=== PATIENT | female | born 1940 | race Caucasian/White ===

== ENCOUNTER 2023-07-08 11:16 | Inpatient (IN) ==
[2023-07-08] MEDS ORDERED: NS 0.9% IV ONE (12:09)
[2023-07-08] MEDS ORDERED: Azithromycin 500 mg/250 ml NS 500 MG/250 ML BAG IVPB ONE (12:09)
[2023-07-08] MEDS ORDERED: cefTRIAXone 1 gm/50 mL D5W 1 GM/50 ML BAG IV ONE (12:09)
[2023-07-08 12:44] LABS: ABS Eosinophils 0.1 10^3/uL (0.0-0.5); ABS Lymphocytes 0.3 10^3/uL (1.0-4.8); ABS Monocytes 0.2 10^3/uL (0.0-0.9); ABS Neutrophils 8.7 10^3/uL (1.5-7.6); ABS Nucleated RBC 0.01 10^3/ul; Eosinophil % 0.9 %; Hematocrit 41.8 % (35-45); Hemoglobin 14.3 g/dL (11.5-14.3); Lymphocyte % 3.2 %; Mean Corpuscular Hemoglobin 31.9 pg (27-33); Mean Corpuscular Hgb Conc 34.1 g/dL (31-36); Mean Corpuscular Volume 93.5 fL (80-97); Mean Platelet Volume 7.9 fL (7.5-11.2); Nucleated Red Blood Cells % 0.1 %/100WBC (0.0-0.8); Platelet Count 220 10^3/uL (150-450); Red Blood Count 4.47 10^6/uL (3.63-4.92); Red Cell Distribution Width 14.4 % (12-17); White Blood Count 9.4 10^3/uL (3.8-11.8)
[2023-07-08] MEDS ORDERED: Acetaminophen IV 1 GM/100ML 1,000 MG/100 ML BAG IV ONE (12:47)
[2023-07-08 13:40] LABS: Albumin 4.5 g/dL (3.2-5.2); Albumin/Globulin Ratio 1.4 (1-3); Calcium 9.3 mg/dL (8.6-10.3); Creatinine, Serum 0.96 mg/dL (0.51-0.95); Globulin 3.2 g/dL (2-4); Potassium 4.1 mmol/L (3.5-5.0); Total Bilirubin 0.5 mg/dL (0.2-1.0); Total Protein 7.7 g/dL (6.4-8.9); eGFR CKD-EPI 59.1 (>60)
[2023-07-08] MEDS ORDERED: Iodixanol (CONTRAST) 320 MG/ML 100 ML SDV IV ONE (14:01)
[2023-07-08 14:05] LABS: High Sensitivity Troponin 1 Hr 1096 pg/mL (<15)
[2023-07-08] MEDS ORDERED: Heparin 5000 UNITS/ML 1 mL VIAL IV SCH (17:00)
[2023-07-08] MEDS ORDERED: methylPREDNISolone SOD SUCC 125 mg 2 ML VIAL IV ONE (17:07)
[2023-07-08] MEDS ORDERED: Ondansetron 4 mg VIAL 2 MG/ML 2 ml VIAL IV PRN (17:09)
[2023-07-08] MEDS: Heparin DRIP 25,000 UNITS BAG 25,000 UNITS/500 ML BAG IV SCH (17:11)
[2023-07-08 17:39] LABS: Hematocrit 40.1 % (35-45); Hemoglobin 13.5 g/dL (11.5-14.3); Mean Corpuscular Hemoglobin 31.8 pg (27-33); Mean Corpuscular Hgb Conc 33.6 g/dL (31-36); Mean Corpuscular Volume 94.6 fL (80-97); Mean Platelet Volume 8.1 fL (7.5-11.2); Platelet Count 202 10^3/uL (150-450); Red Blood Count 4.24 10^6/uL (3.63-4.92); Red Cell Distribution Width 14.3 % (12-17); White Blood Count 9.8 10^3/uL (3.8-11.8)
[2023-07-08 17:48] LABS: Creatinine, Serum 0.88 mg/dL (0.51-0.95); eGFR CKD-EPI 65.6 (>60)
[2023-07-08] MEDS ORDERED: ZOSYN 3.375 GM x ONE DOSE over 30 miuntes IV (18:00)
[2023-07-08 18:54] LABS: ABS Lymphocytes 0.1 10^3/uL (1.0-4.8); ABS Monocytes 0.1 10^3/uL (0.0-0.9); ABS Neutrophils 9.5 10^3/uL (1.5-7.6); Eosinophil % 0.4 %; Lymphocyte % 1.5 %
[2023-07-08] MEDS ORDERED: Metoprolol Tartrate 5 mg VIAL 5 ml VIAL (1 mg/ml) IV ONE (19:01)
[2023-07-08] MEDS: Pantoprazole VIAL 40 MG VIAL IV SCH ×2 (19:13→22:22)
[2023-07-08] MEDS: NS 0.9% 1000 ml BAG 1,000 ML IV SCH (19:32)
[2023-07-08] MEDS ORDERED: Acetaminophen IV 1 GM/100ML 1,000 MG/100 ML BAG IV PRN (19:33)
[2023-07-08 20:35] LABS: High Sensitivity Troponin 3 Hr 3368 pg/mL (<15)
[2023-07-08] MEDS ORDERED: Albuterol 2.5mg/3 ml (0.083%) NEB.SOLN INH PRN (20:53)
[2023-07-09] MEDS: Metoprolol Tartrate 5 mg VIAL 5 ml VIAL (1 mg/ml) IV SCH ×5 (00:26→21:21)
[2023-07-09] MEDS: methylPREDNISolone SOD SUCC 40 mg/ml 1 ml VIAL IV SCH ×5 (00:26→23:23)
[2023-07-09] MEDS: Piperacillin/Tazobac 3.375 BAG 3.375 GM/100 ML BAG IV SCH ×4 (01:21→23:40)
[2023-07-09] MEDS ORDERED: Metoprolol Tartrate 5 mg VIAL 5 ml VIAL (1 mg/ml) IV SCH ×2 (02:00→13:00)
[2023-07-09] MEDS: NS 0.9% 1000 ml BAG 1,000 ML IV SCH (04:23)
[2023-07-09 06:41] LABS: Hematocrit 36.3 % (35-45); Hemoglobin 12.2 g/dL (11.5-14.3); Mean Corpuscular Hemoglobin 31.3 pg (27-33); Mean Corpuscular Hgb Conc 33.6 g/dL (31-36); Mean Corpuscular Volume 93.3 fL (80-97); Platelet Count 167 10^3/uL (150-450); Red Blood Count 3.89 10^6/uL (3.63-4.92); Red Cell Distribution Width 14.3 % (12-17); White Blood Count 13.1 10^3/uL (3.8-11.8)
[2023-07-09 06:59] LABS: Calcium 7.6 mg/dL (8.6-10.3); Creatinine, Serum 0.91 mg/dL (0.51-0.95); Magnesium 1.7 mg/dL (1.9-2.7); Phosphorus 2.3 mg/dL (2.5-5.0); Potassium 3.8 mmol/L (3.5-5.0)
[2023-07-09 07:19] LABS: ABS Basophils 0.1 10^3/uL (0.0-0.1); ABS Eosinophils 0.1 10^3/uL (0.0-0.5); ABS Lymphocytes 0.3 10^3/uL (1.0-4.8); ABS Monocytes 0.1 10^3/uL (0.0-0.9); ABS Neutrophils 12.5 10^3/uL (1.5-7.6); ABS Nucleated RBC 0.01 10^3/ul; Eosinophil % 0.7 %; Lymphocyte % 2.5 %; Nucleated Red Blood Cells % 0.1 %/100WBC (0.0-0.8)
[2023-07-09] MEDS ORDERED: Magnesium Sulfate 2 gm BAG 2 GM/50 ML BAG IVPB ONE (07:20)
[2023-07-09] MEDS ORDERED: NS 0.9% 500 ml BAG 500 ML IV ONE (07:21)
[2023-07-09] MEDS ORDERED: Pantoprazole VIAL 40 MG VIAL IV SCH (07:30)
[2023-07-09 07:43] LABS: RBC Morphology Normal (Normal)
[2023-07-09] MEDS ORDERED: Nebivolol 10 mg TAB (NF) PO SCH ×2 (09:00→10:00)
[2023-07-09] MEDS ORDERED: Metoprolol Tartrate 5 mg VIAL 5 ml VIAL (1 mg/ml) IV PRN (09:26)
[2023-07-09] MEDS ORDERED: Digoxin IV 0.5 MG/2 ML AMP (0.25 MG/ML) IV SLOW PU ONE ×2 (10:08→16:30)
[2023-07-09] MEDS: Ondansetron 4 mg VIAL 2 MG/ML 2 ml VIAL IV PRN ×3 (10:50→23:23)
[2023-07-09] MEDS ORDERED: Furosemide 20 mg/2 ml IV VIAL IV ONE (10:56)
[2023-07-09] MEDS ORDERED: Sodium Phosphate IV 15 MMOL in NS 0.9% 250 ml 250 ML IV ONE (11:00)
[2023-07-09] MEDS ORDERED: Azithromycin 500 mg/250 ml NS 500 MG/250 ML BAG IVPB SCH ×2 (12:00)
[2023-07-09] MEDS: Aspirin EC 81 mg TAB.EC (enteric coated) PO SCH (12:50)
[2023-07-09] MEDS ORDERED: Lidocaine 1% MPF 5 ML VIAL INJ ONE (15:26)
[2023-07-09 19:13] LABS: Calcium 7.1 mg/dL (8.6-10.3); Creatinine, Serum 0.84 mg/dL (0.51-0.95); Potassium 3.2 mmol/L (3.5-5.0); eGFR CKD-EPI 69.3 (>60)
[2023-07-09] MEDS ORDERED: Potassium EFFERVES 25 meq TAB PO ONE (20:11)
[2023-07-09] MEDS: Azithromycin 500 mg/250 ml NS 500 MG/250 ML BAG IVPB SCH (21:07)
[2023-07-09] MEDS: KCL 10 MEQ/50 ML IVPREMIX 10 MEQ/50 ML BAG IV SCH ×3 (21:10→23:22)
[2023-07-10] MEDS: Heparin DRIP 25,000 UNITS BAG 25,000 UNITS/500 ML BAG IV SCH (01:34)
[2023-07-10] MEDS: Metoprolol Tartrate 5 mg VIAL 5 ml VIAL (1 mg/ml) IV SCH ×3 (02:37→08:13)
[2023-07-10 06:10] LABS: ABS Lymphocytes 0.3 10^3/uL (1.0-4.8); ABS Monocytes 0.1 10^3/uL (0.0-0.9); ABS Neutrophils 10.2 10^3/uL (1.5-7.6); ABS Nucleated RBC 0.01 10^3/ul; Eosinophil % 0.4 %; Hematocrit 34.5 % (35-45); Hemoglobin 11.8 g/dL (11.5-14.3); Lymphocyte % 2.4 %; Mean Corpuscular Hemoglobin 31.4 pg (27-33); Mean Corpuscular Hgb Conc 34.1 g/dL (31-36); Mean Corpuscular Volume 92.1 fL (80-97); Nucleated Red Blood Cells % 0.1 %/100WBC (0.0-0.8); Platelet Count 172 10^3/uL (150-450); Red Blood Count 3.75 10^6/uL (3.63-4.92); White Blood Count 10.7 10^3/uL (3.8-11.8)
[2023-07-10] MEDS: methylPREDNISolone SOD SUCC 40 mg/ml 1 ml VIAL IV SCH ×3 (06:31→22:23)
[2023-07-10 06:37] LABS: Magnesium 2.1 mg/dL (1.9-2.7)
[2023-07-10] MEDS: Piperacillin/Tazobac 3.375 BAG 3.375 GM/100 ML BAG IV SCH ×3 (07:43→22:22)
[2023-07-10] MEDS: Ondansetron 4 mg VIAL 2 MG/ML 2 ml VIAL IV PRN (07:44)
[2023-07-10] MEDS: Aspirin EC 81 mg TAB.EC (enteric coated) PO SCH (09:15)
[2023-07-10 10:58] LABS: Calcium 7.1 mg/dL (8.6-10.3); Creatinine, Serum 0.92 mg/dL (0.51-0.95); Magnesium 2.2 mg/dL (1.9-2.7); Phosphorus 1.8 mg/dL (2.5-5.0); Potassium 3.9 mmol/L (3.5-5.0); eGFR CKD-EPI 62.2 (>60)
[2023-07-10] MEDS: Enoxaparin 100 MG/ML SYR SUBCUT SCH ×2 (11:34→22:22)
[2023-07-10] MEDS ORDERED: Digoxin IV 0.5 MG/2 ML AMP (0.25 MG/ML) IV SLOW PU ONE (13:34)
[2023-07-10] MEDS ORDERED: Potassium Phosphate IV 15 MMOL in NS 0.9% 250 ml 250 ML IVPB ONE (15:00)
[2023-07-10] MEDS ORDERED: Metoprolol Tartrate 5 mg VIAL 5 ml VIAL (1 mg/ml) IV PRN ×2 (15:07→16:43)
[2023-07-10] MEDS: Azithromycin 500 mg/250 ml NS 500 MG/250 ML BAG IVPB SCH (20:11)
[2023-07-11 05:40] LABS: ABS Lymphocytes 0.5 10^3/uL (1.0-4.8); ABS Monocytes 0.3 10^3/uL (0.0-0.9); ABS Neutrophils 6.7 10^3/uL (1.5-7.6); ABS Nucleated RBC 0.01 10^3/ul; Eosinophil % 0.2 %; Hematocrit 33.2 % (35-45); Hemoglobin 11.3 g/dL (11.5-14.3); Lymphocyte % 6.3 %; Mean Corpuscular Hemoglobin 31.5 pg (27-33); Mean Corpuscular Hgb Conc 34.1 g/dL (31-36); Mean Corpuscular Volume 92.3 fL (80-97); Mean Platelet Volume 8.4 fL (7.5-11.2); Nucleated Red Blood Cells % 0.1 %/100WBC (0.0-0.8); Platelet Count 206 10^3/uL (150-450); Red Cell Distribution Width 14.2 % (12-17); White Blood Count 7.5 10^3/uL (3.8-11.8)
[2023-07-11 06:00] LABS: Calcium 7.1 mg/dL (8.6-10.3); Creatinine, Serum 1.01 mg/dL (0.51-0.95); Magnesium 2.3 mg/dL (1.9-2.7); Phosphorus 2.5 mg/dL (2.5-5.0); Potassium 3.8 mmol/L (3.5-5.0); eGFR CKD-EPI 55.6 (>60)
[2023-07-11] MEDS: Piperacillin/Tazobac 3.375 BAG 3.375 GM/100 ML BAG IV SCH ×3 (06:02→23:23)
[2023-07-11] MEDS: methylPREDNISolone SOD SUCC 40 mg/ml 1 ml VIAL IV SCH ×2 (06:02→17:37)
[2023-07-11] MEDS: Aspirin EC 81 mg TAB.EC (enteric coated) PO SCH (09:10)
[2023-07-11] MEDS ORDERED: Enoxaparin 100 MG/ML SYR SUBCUT ONE (09:27)
[2023-07-11] MEDS ORDERED: methylPREDNISolone SOD SUCC 40 mg/ml 1 ml VIAL IV SCH (10:00)
[2023-07-11] MEDS: Azithromycin 500 mg/250 ml NS 500 MG/250 ML BAG IVPB SCH (21:48)
[2023-07-12 05:34] LABS: ABS Lymphocytes 0.7 10^3/uL (1.0-4.8); ABS Monocytes 0.8 10^3/uL (0.0-0.9); ABS Neutrophils 5.3 10^3/uL (1.5-7.6); ABS Nucleated RBC 0.06 10^3/ul; Eosinophil % 0.3 %; Hematocrit 32.6 % (35-45); Hemoglobin 11.2 g/dL (11.5-14.3); Lymphocyte % 9.6 %; Mean Corpuscular Hemoglobin 31.7 pg (27-33); Mean Corpuscular Hgb Conc 34.4 g/dL (31-36); Mean Platelet Volume 8.3 fL (7.5-11.2); Nucleated Red Blood Cells % 0.9 %/100WBC (0.0-0.8); Platelet Count 189 10^3/uL (150-450); Red Blood Count 3.54 10^6/uL (3.63-4.92); Red Cell Distribution Width 14.5 % (12-17); White Blood Count 6.8 10^3/uL (3.8-11.8)
[2023-07-12 06:01] LABS: Calcium 7.1 mg/dL (8.6-10.3); HDL Cholesterol 29.4 mg/dL; Magnesium 2.3 mg/dL (1.9-2.7); Phosphorus 2.1 mg/dL (2.5-5.0); Potassium 4.2 mmol/L (3.5-5.0); eGFR CKD-EPI 56.2 (>60)
[2023-07-12] MEDS: methylPREDNISolone SOD SUCC 40 mg/ml 1 ml VIAL IV SCH ×2 (06:05→17:02)
[2023-07-12] MEDS: Piperacillin/Tazobac 3.375 BAG 3.375 GM/100 ML BAG IV SCH ×2 (06:05→17:05)
[2023-07-12 06:40] LABS: Digoxin 2.2 ng/ml (0.8-2.0)
[2023-07-12] MEDS ORDERED: NS 0.9% 1000 ml BAG 1,000 ML IV SCH (08:00)
[2023-07-12] MEDS: Aspirin EC 81 mg TAB.EC (enteric coated) PO SCH ×2 (08:34→08:50)
[2023-07-12 08:58] LABS: ABS Lymphocytes 0.7 10^3/uL (1.0-4.8); ABS Neutrophils 6.2 10^3/uL (1.5-7.6); ABS Nucleated RBC 0.11 10^3/ul; Eosinophil % 0.2 %; Hematocrit 34.6 % (35-45); Hemoglobin 11.7 g/dL (11.5-14.3); Mean Corpuscular Hemoglobin 31.4 pg (27-33); Mean Corpuscular Hgb Conc 33.7 g/dL (31-36); Mean Corpuscular Volume 93.2 fL (80-97); Mean Platelet Volume 8.5 fL (7.5-11.2); Nucleated Red Blood Cells % 1.4 %/100WBC (0.0-0.8); Platelet Count 199 10^3/uL (150-450); Red Blood Count 3.71 10^6/uL (3.63-4.92); Red Cell Distribution Width 14.4 % (12-17); White Blood Count 7.9 10^3/uL (3.8-11.8)
[2023-07-12 11:53] LABS: High Sensitivity Troponin 1 Hr 615 pg/mL (<15)
[2023-07-12] MEDS ORDERED: Midazolam 5 mg/5 ml VIAL 1 mg/ml 5 ml VIAL (5 mg) ONE (13:42)
[2023-07-12] MEDS ORDERED: Heparin 1,000 UNIT/ML 10 ml (10,000 UNITS) CATHLAB/DIALYSIS ONE (13:42)
[2023-07-12] MEDS ORDERED: fentaNYL 100 mcg/2 ml 50 MCG/ML VIAL ONE (13:42)
[2023-07-12] MEDS ORDERED: Heparin 2 UNITS/ML 1000 mls 3,000 ML IV ONE (13:43)
[2023-07-12] MEDS ORDERED: Iohexol 350 (CONTRAST) 200 ML MDV IV ONE (13:43)
[2023-07-12] MEDS ORDERED: niCARdipine 0.1MG/ML IVPREMIX 20 MG/200 ML BAG IV ONE (13:43)
[2023-07-12] MEDS ORDERED: Lidocaine 1% MPF 5 ML VIAL ONE (13:45)
[2023-07-12] MEDS ORDERED: Flumazenil 0.5 mg/5 ml 0.1 MG/ML 5 ml VIAL IV PRN (13:46)
[2023-07-12] MEDS ORDERED: Naloxone 0.4 mg VIAL 0.4 mg/ml 1 ml VIAL IV PUSH PRN (13:46)
[2023-07-12] MEDS ORDERED: Midazolam 10 mg/10 ml VIAL 1 mg/ml 10 ml VIAL (10 mg) IV SLOW PU ONE ×2 (13:46→15:59)
[2023-07-12] MEDS ORDERED: fentaNYL 100 mcg/2 ml 50 MCG/ML VIAL IV SLOW PU ONE ×2 (13:46→15:59)
[2023-07-12] MEDS ORDERED: nitroGLYCERIN DRIP (PHA MIX) 25,000 MCG/250 ML BAG ONE (13:49)
[2023-07-12] MEDS ORDERED: oxyCODONE/Acetamin 5/325 mg TAB PO PRN (14:13)
[2023-07-12] MEDS: Azithromycin 500 mg/250 ml NS 500 MG/250 ML BAG IVPB SCH (20:53)
[2023-07-13] MEDS: Piperacillin/Tazobac 3.375 BAG 3.375 GM/100 ML BAG IV SCH ×3 (01:37→16:27)
[2023-07-13 06:15] LABS: Hemoglobin 11.5 g/dL (11.5-14.3); Mean Corpuscular Hemoglobin 31.8 pg (27-33); Mean Corpuscular Hgb Conc 33.9 g/dL (31-36); Mean Corpuscular Volume 93.8 fL (80-97); Mean Platelet Volume 8.7 fL (7.5-11.2); Platelet Count 218 10^3/uL (150-450); Red Blood Count 3.62 10^6/uL (3.63-4.92); Red Cell Distribution Width 14.5 % (12-17); White Blood Count 8.9 10^3/uL (3.8-11.8)
[2023-07-13 06:54] LABS: ABS Lymphocytes 0.7 10^3/uL (1.0-4.8); ABS Monocytes 1.1 10^3/uL (0.0-0.9); ABS Neutrophils 6.9 10^3/uL (1.5-7.6); ABS Nucleated RBC 0.31 10^3/ul; Eosinophil % 0.2 %; Lymphocyte % 8.3 %; Nucleated Red Blood Cells % 3.4 %/100WBC (0.0-0.8)
[2023-07-13] MEDS: Aspirin EC 81 mg TAB.EC (enteric coated) PO SCH (07:57)
[2023-07-13 08:37] LABS: Hematocrit 35.7 % (35-45); Hemoglobin 11.5 g/dL (11.5-14.3); Mean Corpuscular Hemoglobin 32.1 pg (27-33); Mean Corpuscular Hgb Conc 32.2 g/dL (31-36); Mean Corpuscular Volume 99.6 fL (80-97); Mean Platelet Volume 8.2 fL (7.5-11.2); Platelet Count 200 10^3/uL (150-450); Red Blood Count 3.58 10^6/uL (3.63-4.92); Red Cell Distribution Width 15.8 % (12-17); White Blood Count 8.1 10^3/uL (3.8-11.8)
[2023-07-13 09:21] LABS: Anion Gap 13 mmol/L (2-16); Blood Urea Nitrogen 37 mg/dL (6-24); CO2 Carbon Dioxide 17 mmol/L (22-32); Calcium 7.4 mg/dL (8.6-10.3); Chloride 106 mmol/L (101-111); Creatinine, Serum 0.88 mg/dL (0.51-0.95); Glucose 129 mg/dL (70-100); Magnesium 2.4 mg/dL (1.9-2.7); Sodium 136 mmol/L (135-145); eGFR CKD-EPI 65.6 (>60)
[2023-07-13] MEDS ORDERED: fentaNYL 100 mcg/2 ml 50 MCG/ML VIAL ONE (09:59)
[2023-07-13] MEDS ORDERED: Midazolam 5 mg/5 ml VIAL 1 mg/ml 5 ml VIAL (5 mg) ONE (09:59)
[2023-07-13] MEDS ORDERED: Naloxone 0.4 mg VIAL 0.4 mg/ml 1 ml VIAL ONE (09:59)
[2023-07-13] MEDS ORDERED: Flumazenil 0.5 mg/5 ml 0.1 MG/ML 5 ml VIAL ONE (09:59)
[2023-07-13 10:22] LABS: ABS Lymphocytes 0.8 10^3/uL (1.0-4.8); ABS Monocytes 1.2 10^3/uL (0.0-0.9); ABS Neutrophils 6.1 10^3/uL (1.5-7.6); ABS Nucleated RBC 1.07 10^3/ul; Eosinophil % 0.1 %; Lymphocyte % 9.4 %; Nucleated Red Blood Cells % 13.2 %/100WBC (0.0-0.8)
[2023-07-13 10:23] LABS: Anisocytosis 2+; Polychromasia 1+
[2023-07-13] MEDS ORDERED: fentaNYL 100 mcg/2 ml 50 MCG/ML VIAL IV SLOW PU ONE (10:23)
[2023-07-13] MEDS ORDERED: Midazolam 10 mg/10 ml VIAL 1 mg/ml 10 ml VIAL (10 mg) IV SLOW PU ONE (10:23)
[2023-07-13] MEDS ORDERED: Polyethylene Glycol 3350 17 GM PACKET PO PRN (20:40)
[2023-07-13] MEDS: Senna TAB 8.6 mg TAB PO SCH (21:24)
[2023-07-13] MEDS: Azithromycin 500 mg/250 ml NS 500 MG/250 ML BAG IVPB SCH (21:33)
[2023-07-14] MEDS: Piperacillin/Tazobac 3.375 BAG 3.375 GM/100 ML BAG IV SCH (01:13)
[2023-07-14 06:10] LABS: Hematocrit 33.3 % (35-45); Hemoglobin 11.2 g/dL (11.5-14.3); Mean Corpuscular Hemoglobin 31.9 pg (27-33); Mean Corpuscular Hgb Conc 33.8 g/dL (31-36); Mean Corpuscular Volume 94.5 fL (80-97); Mean Platelet Volume 8.5 fL (7.5-11.2); Platelet Count 234 10^3/uL (150-450); Red Blood Count 3.52 10^6/uL (3.63-4.92); Red Cell Distribution Width 14.6 % (12-17); White Blood Count 11.2 10^3/uL (3.8-11.8)
[2023-07-14 06:15] LABS: Creatinine, Serum 0.82 mg/dL (0.51-0.95); Magnesium 2.1 mg/dL (1.9-2.7); Potassium 3.9 mmol/L (3.5-5.0); eGFR CKD-EPI 71.4 (>60)
[2023-07-14 07:00] LABS: ABS Lymphocytes 0.9 10^3/uL (1.0-4.8); ABS Monocytes 1.5 10^3/uL (0.0-0.9); ABS Neutrophils 8.8 10^3/uL (1.5-7.6); ABS Nucleated RBC 0.49 10^3/ul; Anisocytosis 1+; Eosinophil % 0.3 %; Lymphocyte % 7.6 %; Nucleated Red Blood Cells % 4.4 %/100WBC (0.0-0.8); Polychromasia 1+
[2023-07-14] MEDS: Aspirin EC 81 mg TAB.EC (enteric coated) PO SCH (09:25)
[2023-07-14] MEDS: Senna TAB 8.6 mg TAB PO SCH (20:24)
[2023-07-15 08:42] LABS: Calcium 8.8 mg/dL (8.6-10.3); Creatinine, Serum 0.77 mg/dL (0.51-0.95); Magnesium 1.8 mg/dL (1.9-2.7); Potassium 3.3 mmol/L (3.5-5.0)
[2023-07-15] MEDS: Aspirin EC 81 mg TAB.EC (enteric coated) PO SCH (08:46)
[2023-07-15] MEDS ORDERED: Potassium Chlor 20 meq TAB.ER PO ONE (08:49)
[2023-07-15 08:58] LABS: Hematocrit 43.3 % (35-45); Hemoglobin 14.6 g/dL (11.5-14.3); Mean Corpuscular Hemoglobin 31.3 pg (27-33); Mean Corpuscular Hgb Conc 33.7 g/dL (31-36); Mean Corpuscular Volume 92.8 fL (80-97); Mean Platelet Volume 8.2 fL (7.5-11.2); Platelet Count 338 10^3/uL (150-450); Red Blood Count 4.66 10^6/uL (3.63-4.92); Red Cell Distribution Width 14.3 % (12-17); White Blood Count 16.8 10^3/uL (3.8-11.8)
[2023-07-15 09:43] LABS: ABS Basophils 0.1 10^3/uL (0.0-0.1); ABS Eosinophils 0.6 10^3/uL (0.0-0.5); ABS Lymphocytes 1.6 10^3/uL (1.0-4.8); ABS Monocytes 1.4 10^3/uL (0.0-0.9); ABS Neutrophils 13.1 10^3/uL (1.5-7.6); Anisocytosis 1+; Eosinophil % 3.8 %; Lymphocyte % 9.6 %; Nucleated Red Blood Cells % 1.8 %/100WBC (0.0-0.8); Polychromasia 1+
[2023-07-15 15:04] VITALS: BP 142/62
== END 2023-07-15 16:30 | disposition home or self-care (01) | DRG 871 ==
LOC: ED 11:16 → SUATTDRO 16:08 → EDHOLD 16:08 → MEDTELE 17:42
PROVIDERS: ADMIT Internal Medicine; ATTEND Internal Medicine

== ENCOUNTER 2023-11-19 14:21 | Inpatient (IN) ==
[2023-11-19] MEDS: Ondansetron ODT 4 mg TAB 4 MG TAB SL ONE (16:18)
[2023-11-19] MEDS: Lactated Ringers 1000 ml BAG 1,000 ML IV ONE ×2 (16:19→22:18)
[2023-11-19] MEDS: Labetalol IV 5 MG/ML 20 ml VIAL IV PUSH ONE ×2 (16:19→18:40)
[2023-11-19 17:04] LABS: ABS Lymphocytes 0.8 10^3/uL (1.0-4.8); ABS Monocytes 0.9 10^3/uL (0.0-0.9); ABS Nucleated RBC 0.01 10^3/ul; Hematocrit 49.1 % (35-45); Hemoglobin 16.3 g/dL (11.5-14.3); Lymphocyte % 5.3 %; Mean Corpuscular Hemoglobin 31.5 pg (27-33); Mean Corpuscular Hgb Conc 33.3 g/dL (31-36); Mean Corpuscular Volume 94.8 fL (80-97); Mean Platelet Volume 8.5 fL (7.5-11.2); Nucleated Red Blood Cells % 0.1 %/100WBC (0.0-0.8); Platelet Count 269 10^3/uL (150-450); Red Blood Count 5.18 10^6/uL (3.63-4.92); Red Cell Distribution Width 15.7 % (12-17); White Blood Count 15.8 10^3/uL (3.8-11.8)
[2023-11-19 17:56] LABS: ALT 21 U/L (7-52); Albumin 4.6 g/dL (3.2-5.2); Albumin/Globulin Ratio 1.5 (1-3); Alkaline Phosphatase 50 U/L (35-149); Anion Gap 13 mmol/L (2-16); Blood Urea Nitrogen 17 mg/dL (6-24); CO2 Carbon Dioxide 25 mmol/L (22-32); Calcium 9.5 mg/dL (8.6-10.3); Chloride 100 mmol/L (101-111); Creatinine, Serum 0.69 mg/dL (0.51-0.95); Glucose 88 mg/dL (70-100); Sodium 138 mmol/L (135-145); Total Bilirubin 1.2 mg/dL (0.2-1.0); Total Protein 7.6 g/dL (6.4-8.9); eGFR CKD-EPI 86.6 (>60)
[2023-11-19] MEDS: Ondansetron 4 mg VIAL 2 MG/ML 2 ml VIAL IV ONE (18:40)
[2023-11-19] MEDS: Droperidol 5 MG/2 ML 2 ML VIAL IV ONE (19:54)
[2023-11-19] MEDS: Iohexol 350 (CONTRAST) 500 ML MDV IV ONE (21:22)
[2023-11-19 21:34] LABS: Magnesium 1.6 mg/dL (1.9-2.7); Potassium Redraw 2.9 mmol/L (3.5-5.0)
[2023-11-19] MEDS: Magnesium Sulfate 2 gm BAG 2 GM/50 ML BAG IVPB ONE (22:18)
[2023-11-19] MEDS: KCL 10 MEQ/50 ML IVPREMIX 10 MEQ/50 ML BAG IV SCH (22:18)
[2023-11-20 01:24] LABS: C Reactive Protein 3.61 mg/L (<8.01)
[2023-11-20] MEDS: Enoxaparin 40 MG/0.4 ML SYR SUBCUT SCH (01:51)
[2023-11-20 02:28] LABS: Erythrocyte Sed Rate 5 mm/Hr (0-29)
[2023-11-20] MEDS: Lactated Ringers 1000 ml BAG 1,000 ML IV ONE (03:36)
[2023-11-20 07:52] LABS: ABS Lymphocytes 1.3 10^3/uL (1.0-4.8); ABS Monocytes 0.8 10^3/uL (0.0-0.9); ABS Neutrophils 5.9 10^3/uL (1.5-7.6); Eosinophil % 0.4 %; Hemoglobin 13.2 g/dL (11.5-14.3); Mean Corpuscular Hemoglobin 31.8 pg (27-33); Mean Corpuscular Hgb Conc 33.8 g/dL (31-36); Mean Corpuscular Volume 93.9 fL (80-97); Platelet Count 211 10^3/uL (150-450); Red Blood Count 4.15 10^6/uL (3.63-4.92); Red Cell Distribution Width 15.6 % (12-17)
[2023-11-20] MEDS ORDERED: Lactated Ringers 1000 ml BAG 1,000 ML IV SCH (08:00)
[2023-11-20 08:24] LABS: Albumin 3.6 g/dL (3.2-5.2); Albumin/Globulin Ratio 1.8 (1-3); Calcium 8.6 mg/dL (8.6-10.3); Creatinine, Serum 0.62 mg/dL (0.51-0.95); Potassium 3.4 mmol/L (3.5-5.0); Total Bilirubin 1.1 mg/dL (0.2-1.0); Total Protein 5.6 g/dL (6.4-8.9); eGFR CKD-EPI 88.9 (>60)
[2023-11-20] MEDS: Al Hydrox/Mg Hydrox/Simet LIQ 30 ML UDC PO ONE (09:24)
[2023-11-20] MEDS: Pantoprazole VIAL 40 MG VIAL IV SCH (09:24)
[2023-11-20] MEDS: Ondansetron 4 mg VIAL 2 MG/ML 2 ml VIAL IV PRN (09:24)
[2023-11-20] MEDS: Magnesium Sulfate 2 gm BAG 2 GM/50 ML BAG IVPB ONE (11:02)
[2023-11-20] MEDS: hydrALAZINE 20 mg/ml 1 ML Vial IV IV SLOW PU PRN (11:45)
[2023-11-20] MEDS: Lactated Ringers 1000 ml BAG 1,000 ML IV SCH (11:45)
[2023-11-20] MEDS: KCL 20 MEQ/100 ML IVPREMIX 20 MEQ/100 ML BAG IV SCH ×2 (15:32→21:09)
[2023-11-21] MEDS: hydrALAZINE 20 mg/ml 1 ML Vial IV IV SLOW PU ONE (00:04)
[2023-11-21 09:51] LABS: Calcium 9.2 mg/dL (8.6-10.3); Creatinine, Serum 0.66 mg/dL (0.51-0.95); Potassium 3.8 mmol/L (3.5-5.0); eGFR CKD-EPI 87.5 (>60)
[2023-11-23] MEDS: Senna TAB 8.6 mg TAB PO SCH (21:23)
[2023-11-24 14:06] VITALS: BP 103/64
== END 2023-11-24 16:14 | disposition home or self-care (01) | DRG 392 ==
LOC: EDHOLD 14:21 → ED 14:21 → SUATTDRO 23:59 → MEDTELE 11-20 01:00 → SUATTDRO 11-21 10:00
PROVIDERS: ADMIT Student in an Organized Health Care Education/Training Program; ATTEND Internal Medicine

== ENCOUNTER 2023-12-30 12:42 | Observation (INO) ==
[2023-12-30] MEDS: Lactated Ringers 1000 ml BAG 1,000 ML IV ONE (13:44)
[2023-12-30 13:56] LABS: ABS Lymphocytes 1.4 10^3/uL (1.0-4.8); ABS Monocytes 0.9 10^3/uL (0.0-0.9); Eosinophil % 0.2 %; Hematocrit 44.8 % (35-45); Hemoglobin 15.1 g/dL (11.5-14.3); Lymphocyte % 13.7 %; Mean Corpuscular Hemoglobin 32.3 pg (27-33); Mean Corpuscular Hgb Conc 33.7 g/dL (31-36); Platelet Count 298 10^3/uL (150-450); Red Blood Count 4.66 10^6/uL (3.63-4.92); Red Cell Distribution Width 16.2 % (12-17); White Blood Count 10.4 10^3/uL (3.8-11.8)
[2023-12-30 14:37] LABS: Albumin 4.4 g/dL (3.2-5.2); Albumin/Globulin Ratio 1.6 (1-3); Calcium 10.1 mg/dL (8.6-10.3); Creatinine, Serum 0.76 mg/dL (0.51-0.95); Globulin 2.8 g/dL (2-4); Potassium 4.6 mmol/L (3.5-5.0); Total Bilirubin 0.6 mg/dL (0.2-1.0); Total Protein 7.2 g/dL (6.4-8.9); eGFR CKD-EPI 78.2 (>60)
[2023-12-30 17:04] LABS: Urine Appearance Clear; Urine Bilirubin Negative (Negative); Urine Blood Negative (Negative); Urine Color Light-Yellow; Urine Glucose Negative (Negative); Urine Ketones Trace (Negative); Urine Nitrite Negative (Negative); Urine Protein Negative (Negative); Urine Specific Gravity 1.012 (1.002-1.030); Urine Urobilinogen Negative (Negative); Urine pH 6.5 (5.0-8.0)
[2023-12-30] MEDS ORDERED: Ondansetron ODT 4 mg TAB 4 MG TAB PO PRN (17:09)
[2023-12-30] MEDS: Enoxaparin 40 MG/0.4 ML SYR SUBCUT SCH (18:13)
[2023-12-30] MEDS: Lactated Ringers 1000 ml BAG 1,000 ML IV SCH (18:13)
[2023-12-31 07:11] LABS: Calcium 8.6 mg/dL (8.6-10.3); Creatinine, Serum 0.63 mg/dL (0.51-0.95); Potassium 4.1 mmol/L (3.5-5.0); eGFR CKD-EPI 88.5 (>60)
[2023-12-31] MEDS: [UNRECOGNIZED DRUG - OTHER] PO SCH (09:33)
[2023-12-31] MEDS: Senna TAB 8.6 mg TAB PO SCH (09:37)
[2023-12-31] MEDS: Cholecalciferol (VIT D3) 1,000 unit TAB PO SCH (09:52)
[2024-01-01 07:22] LABS: Calcium 8.4 mg/dL (8.6-10.3); Creatinine, Serum 0.68 mg/dL (0.51-0.95); Potassium 3.9 mmol/L (3.5-5.0); eGFR CKD-EPI 86.9 (>60)
[2024-01-02 06:29] LABS: Calcium 8.5 mg/dL (8.6-10.3); Creatinine, Serum 0.65 mg/dL (0.51-0.95); Potassium 4.2 mmol/L (3.5-5.0); eGFR CKD-EPI 87.9 (>60)
[2024-01-02] MEDS: Magnesium Hydroxide LIQ 30 ML UDC PO PRN (09:53)
[2024-01-03 13:30] VITALS: BP 124/51
[2024-01-03] MEDS: COVID VAC 23-24(12+)(Moderna) SYR 0.5 ML IM ONE (15:55)
== END 2024-01-03 18:00 | disposition short-term general hospital (02) ==
LOC: EDHOLD 12:42 → ED 12:42 → SUATTDRO 16:38 → MEDTELE 17:38 → SSU 18:24
PROVIDERS: ADMIT Internal Medicine; ATTEND Internal Medicine

== ENCOUNTER 2024-01-26 08:46 | Observation (INO) ==
[~2024-01-26 08:46] MED LIST: Metoclopramide 5 MG/ML VIAL (10 mg) IV PRN; NS 0.45% 1000 ml BAG 1,000 ML IV SCH; Naloxone 0.4 mg VIAL 0.4 mg/ml 1 ml VIAL IV PRN; Ondansetron 4 mg VIAL 2 MG/ML 2 ml VIAL IV PRN; fentaNYL 100 mcg/2 ml 50 MCG/ML VIAL IV PRN
[2024-01-26] MEDS ORDERED: Buffered Lidocaine 1% SYRIN 1 ml ONE (10:15)
[2024-01-26 10:21] LABS: Rapid COVID-19 Molecular Undetected (Undetected)
[2024-01-26] MEDS ORDERED: fentaNYL 100 mcg/2 ml 50 MCG/ML VIAL ONE (12:32)
[2024-01-26] MEDS ORDERED: Sodium Chloride 0.9% 10 ML ONE (12:33)
[2024-01-26] MEDS ORDERED: ceFAZolin 2 GM PREMIX 2 GM/50 ML BAG ONE (12:41)
[2024-01-26] MEDS ORDERED: Midazolam 2 mg/2 ml VIAL 1 mg/ml 2 ml VIAL (2 mg) ONE (12:53)
[2024-01-26] MEDS ORDERED: Succinylcholine 200 mg VIAL 20 mg/ml 10 ml VIAL (200 mg) ONE (12:56)
[2024-01-26] MEDS ORDERED: Rocuronium 50 mg VIAL 10 mg/ml 5 ml VIAL (50 mg) ONE ×2 (14:02→16:20)
[2024-01-26] MEDS ORDERED: HYDROmorphone 0.5 MG/0.5 ML SYRINGE ONE (14:35)
[2024-01-26] MEDS ORDERED: Propofol 10 MG/ML 20 ML BTL ONE (14:47)
[2024-01-26] MEDS ORDERED: Phenylephrine IV 10 MG/ML 1 ml VIAL ONE (16:47)
[2024-01-26] MEDS ORDERED: Dexamethasone IV 4 MG/ML VIAL 1 ml VIAL ONE (17:09)
[2024-01-26] MEDS ORDERED: Morphine 2 MG/ML SYRINGE IV PRN (17:48)
[2024-01-26] MEDS ORDERED: Metoprolol Tartrate 5 mg VIAL 5 ml VIAL (1 mg/ml) IV PRN (17:51)
[2024-01-26] MEDS: Buffered Lidocaine 1% SYRIN 1 ml INTRADERM ONE (19:22)
[2024-01-26] MEDS: Acetaminophen IV 1 GM/100ML 1,000 MG/100 ML BAG IV ONE (19:22)
[2024-01-26] MEDS: Scopolamine 1 mg/72hr PATCH TRANSDERM ONE (19:22)
[2024-01-26] MEDS: Lactated Ringers 1000 ml BAG 1,000 ML IV SCH ×2 (19:23→20:13)
[2024-01-26] MEDS: Acetaminophen IV 1 GM/100ML 1,000 MG/100 ML BAG IV SCH (20:12)
[2024-01-26] MEDS: Heparin 5000 UNITS/ML 1 mL VIAL SUBCUT SCH (21:01)
[2024-01-27 06:43] LABS: ABS Lymphocytes 0.6 10^3/uL (1.0-4.8); ABS Monocytes 0.7 10^3/uL (0.0-0.9); ABS Neutrophils 9.4 10^3/uL (1.5-7.6); Hematocrit 37.7 % (35-45); Hemoglobin 13.1 g/dL (11.5-14.3); Lymphocyte % 5.2 %; Mean Corpuscular Hemoglobin 33.8 pg (27-33); Mean Corpuscular Hgb Conc 34.7 g/dL (31-36); Mean Corpuscular Volume 97.4 fL (80-97); Mean Platelet Volume 7.7 fL (7.5-11.2); Platelet Count 139 10^3/uL (150-450); Red Blood Count 3.87 10^6/uL (3.63-4.92); White Blood Count 10.6 10^3/uL (3.8-11.8)
[2024-01-27 07:25] LABS: Calcium 9.1 mg/dL (8.6-10.3); Creatinine, Serum 0.72 mg/dL (0.51-0.95); Potassium 4.6 mmol/L (3.5-5.0); eGFR CKD-EPI 83.4 (>60)
[2024-01-27] MEDS ORDERED: Morphine 2 MG/ML SYRINGE IV PRN (16:32)
[2024-01-27] MEDS ORDERED: HYDROcodone/ACET. 7.5/325 LIQ 15 ML UDC PO PRN (16:36)
[2024-01-28] MEDS: Ondansetron 4 mg VIAL 2 MG/ML 2 ml VIAL IV PRN (11:41)
[2024-01-28] MEDS: D5LR 1000 ml BAG 1,000 ML IV SCH (12:07)
[2024-01-28] MEDS: Scopolamine 1 mg/72hr PATCH TRANSDERM SCH (12:12)
[2024-01-28] MEDS: Metoclopramide 5 MG/ML VIAL (10 mg) IV PRN (13:20)
[2024-01-29 13:40] VITALS: BP 141/51
== END 2024-01-29 14:30 | disposition home or self-care (01) ==
LOC: AA 08:46 → INTOOBSV 08:46 → SSU 18:46
PROVIDERS: ADMIT Surgery; ATTEND Surgery